=== PATIENT | male | born 1960 | race Caucasian/White ===

== ENCOUNTER 2018-02-08 11:56 | Inpatient (IN) | payer OTHER ==
[~2018-02-08] VITALS: Ht 177.8 cm; Wt 77.1 kg
--- NOTE | ~2018-02-08 | EKG ---
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
--- NOTE | ~2018-02-08 | HC ---
[facility] [place] [address] CONSULTATION Name: ROSE VILLAREAL Room #: 215-P [facility] IN M.R.#: [id number] Admission: 02/08/18 Attend Phys: Bernard Alcala MD Discharge: 02/10/18 Date of : 58 Report #: [id number] THIS REPORT FOR: //name// CC: FAM unknown Octavio Chai Alcala REASON FOR CONSULTATION: AV node ablation. HISTORY OF PRESENT ILLNESS: The patient is a 58-year-old with history of mechanical aortic valve, status post pacemaker implantation with recovery of conduction as well as severe COPD and paroxysmal atrial fibrillation. He has had approximately 6 hospitalizations recently at [facility] for AFib with RVR. He has been tried on amiodarone, but his lungs could not tolerate this. He failed sotalol and Tikosyn therapy most recently. I spoke with Dr. Medeiros, his primary yard caller at [facility] and he requested to transfer the patient for AV node ablation. REVIEW OF SYSTEMS: GENERAL: No fevers or chills. HEENT: No blurred vision. CARDIOVASCULAR: Shortness of breath and fatigue with atrial fibrillation. PULMONARY: No productive cough. GASTROINTESTINAL: No nausea or vomiting. GENITOURINARY: No dysuria. MUSCULOSKELETAL: No myalgias or arthralgias. ENDOCRINE: No heat or cold intolerance. NEUROLOGIC: No focal weakness. PAST MEDICAL HISTORY: 1. Mechanical aortic valve. 2. Dual chamber MRI compatible Medtronic pacemaker. 3. Paroxysmal atrial fibrillation. 4. Diastolic heart failure with normal EF based on echo this year. 5. End-stage COPD, on oxygen. 6. Hypertension. SOCIAL HISTORY: Does not smoke. FAMILY HISTORY: Noncontributory. ALLERGIES: None. CURRENT MEDICATIONS: Include lisinopril, Lasix, digoxin, sotalol, atorvastatin, diltiazem and warfarin. PHYSICAL EXAMINATION: [facility] [address] [place] [address] CONSULTATION Name: ROSE VILLAREAL Room #: 215-P [facility]#: [id number] Admission: 02/08/18 Attend Phys: Bernard Alcala MD Discharge: 02/10/18 Date of : 58 Report #: [id number] VITAL SIGNS: Temperature is 36.4, pulse 64, respiratory rate 18, blood pressure 125/61, sats 99%. GENERAL: The patient is in no acute distress. HEENT: Oropharynx is clear. Mucous membranes are moist. NECK: Supple with no thyromegaly. HEART: Regular rate and rhythm with no murmurs, rubs, gallops. He does have mechanical aortic sounds. LUNGS: Demonstrate some mild bibasilar crackles. ABDOMEN: Soft, nontender, nondistended with no hepatosplenomegaly. EXTREMITIES: There is no clubbing, cyanosis, edema. NEUROLOGICAL: Cranial nerves 2-12 are intact. LABORATORY DATA: His 12-lead EKG shows atrial fibrillation with right bundle branch block and no ischemic changes. His telemetry shows that he is currently in sinus rhythm, but overnight he was in atrial fibrillation with rates in the 150s to 160s. His chest x-ray, I personally reviewed showed some chronic interstitial lung changes, likely from COPD. It shows a stable pacemaker with normal cardiac silhouette. LABORATORY DATA: White count 6, hemoglobin 9, platelets 211. INR is 1.8, potassium is 4.6, creatinine is 0.7, proBNP is 1400. TSH is 4.4. ASSESSMENT: 1. Atrial fibrillation with rapid ventricular response. 2. Atrial flutter with rapid ventricular response. 3. Mechanical aortic valve. 4. Dual chamber pacemaker. 5. Severe chronic obstructive pulmonary disease. 6. Acute on chronic diastolic heart failure. 7. Hypertension. PLAN: In summary, the patient is a 58-year-old with history of paroxysmal AFib with rapid ventricular response, who has failed antiarrhythmic drugs and has had multiple rehospitalizations with AFib with RVR. He is here today for AV node ablation. I have discussed the details of the procedure with the patient including the risks, which include but not limited to bleeding, vascular damage as well as stroke or NE. He understands these risks and is willing to proceed. Post-ablation, we can resume his warfarin. <ELECTRONICALLY SIGNED> By: Octavio Paula MD 02/12/18 0831 0851 12 Octavio Paula MD /nt
--- NOTE | ~2018-02-08 | HC ---
[facility] [place] [address] CONSULTATION Name: ROSE VILLAREAL Room #: 215-P ADM IN M.R.#: [id number] Admission: 02/08/18 Attend Phys: Bernard Alcala MD Discharge: Date of : 58 Report #: [id number] THIS REPORT FOR: //name// CC: FAM unknown Octavio Warrendenaereina Bernard Alcala DATE OF SERVICE: 02/08/2018 TYPE OF REPORT: Cardiology consultation. INDICATION: Atrial fibrillation. HISTORY OF PRESENT ILLNESS: This is a 58-year-old gentleman transferred from [facility] for AV node ablation. He has a history significant for end-stage COPD, on home O2; chronic atrial fibrillation; chronic diastolic heart failure; mechanical aortic valve replacement and permanent pacemaker; presenting with respiratory failure. Apparently, he has had multiple admissions to [facility] with recurrent respiratory failure, partly attributed to atrial fibrillation with a rapid ventricular rate. The increased heart rate is felt to be triggered by his COPD exacerbation. There is no history of chest pains, nausea or diarrhea. PAST MEDICAL HISTORY: 1. Mechanical aortic valve replacement in 2013. 2. History of atrial fibrillation. 3. Chronic diastolic heart failure, echo reveals normal LV systolic function in 2018. 4. End-stage COPD, on home oxygen. 5. Permanent pacemaker for complete heart block. 6. History of hypertension. ALLERGIES: None. SOCIAL HISTORY: Denies tobacco use. MEDICATIONS: Lisinopril, Lasix, digoxin, sotalol, atorvastatin, diltiazem and warfarin. PHYSICAL EXAMINATION: VITAL SIGNS: Blood pressure 140/80 and heart rate is 80 beats per minute. GENERAL APPEARANCE: A thin male, in no acute distress. HEENT: Normocephalic and atraumatic. Oral mucosa moist. NECK: Supple. LUNGS: Diminished breath sounds diffusely. CARDIAC: Regular rate and rhythm. S1 and S2 positive. [facility] [address] [place] [address] CONSULTATION Name: ROSE VILLAREAL Room #: 215-P ADM IN [facility]#: [id number] Admission: 02/08/18 Attend Phys: Bernard Alcala MD Discharge: Date of : 58 Report #: [id number] ABDOMEN: Soft and nontender. EXTREMITIES: No edema. No cyanosis. LABORATORY DATA: Laboratory values are pending. ASSESSMENT AND PLAN: 1. Atrial fibrillation with intermittent rapid ventricular rate. Mostly driven by chronic obstructive pulmonary disease exacerbations. He has had multiple recurrence in the past 6 months. The plan is to proceed with atrioventricular node ablation. He already has an underlying pacemaker. 2. Chronic obstructive pulmonary disease/respiratory failure, appears to be stable at this time. 3. Mechanical aortic valve replacement, stable with no symptoms of congestion. Continue with warfarin therapy. 4. Hypertension, continue with medications. <ELECTRONICALLY SIGNED> By: Mak Muñiz MD 02/09/18 0807 1515 0005 Mak Muñiz MD /latoya
--- NOTE | ~2018-02-08 | EKG ---
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 : 1960 Requested By: Octavio Paula Order Number: [id number] MD: Dakota Velez Measurements Intervals [place] Rate: 69 P: 36 [place]: 200 QRS: -84 QRSD: 140 T: 96 QT: 442 QTc: 474 Interpretive Statements A-V dual-paced rhythm No further analysis attempted due to paced rhythm Compared to ECG 02/08/2018 15:56:47 Atrial fibrillation no longer present Right bundle-branch block no longer present Electronically Signed On 02-10-2018 16:32:45 BACK TENDER PAPER MACHINE by Dakota Velez [email or web address] <ELECTRONICALLY SIGNED> By: Dakota Velez MD, [facility] 02/10/18 1632 0656 0656 Dakota Velez MD, [facility] /EPI
--- NOTE | ~2018-02-08 | P ---
[facility] [place] [address] PROCEDURE REPORT Name: ROSE VILLAREAL Room #: 215-P [facility] IN M.R.#: [id number] Admission: 02/08/18 Attend Phys: Bernard Alcala MD Discharge: 02/10/18 Date of : 58 Report #: [id number] THIS REPORT FOR: //name// CC: FAM unknown Octavio Chai Alcala PREOPERATIVE DIAGNOSIS: Atrial fibrillation. POSTOPERATIVE DIAGNOSIS: Atrial fibrillation. HISTORY: The patient is a 58-year-old with a history of end-stage COPD on chronic oxygen, paroxysmal atrial fibrillation as well as mechanical aortic valve, status post prior pacemaker implantation. He has been rehospitalized multiple times at [facility] with AFib with RVR that they cannot control and has failed amiodarone, sotalol and Tikosyn therapy. He is here for AV node ablation. PROCEDURE: 1. AV node ablation, CPT code 04106. 2. Pacemaker programming, pre-ablation, CPT code 65533. 3. Pacemaker reprogramming, post-ablation, CPT code 93772. ANESTHESIA: The patient underwent MAC anesthesia and required BiPAP therapy for oxygenation with no procedural complications. DESCRIPTION OF PROCEDURE: The patient underwent informed consent. We discussed the details of the procedure including the risks, which include but not limited to bleeding, infection, vascular damage, cardiac perforation, stroke and [place]. He understood these risks and is willing to proceed. The patient was brought to the EP laboratory in a fasting and unsedated state. His Medtronic dual chamber pacemaker was reprogrammed to the VVI 40 mode prior to the procedure. Next, I obtained access to the right femoral vein and placed an SR0 sheath and an 8 mm Biosense [place] ablation catheter at the level of the AV node. Of note, I could not really find a His. I performed an anatomic ablation and performed a continuous drag lesion at 70 hall and 60 degrees until I was almost completely in the atrium at which time there was evidence of a complete heart block. After a few minutes, his conduction did return. I therefore went back to the original site where we successfully ablated the node and performed additional ablation at this site. We monitored the patient for a period of time and there was no recurrence of conduction. His pacemaker was reprogrammed to the DDD 60-120 mode. I did program on atrial ATP as well as it appears the patient goes in and out of atrial fibrillation. Catheters and sheaths were pulled and then hemostasis was obtained. There were no procedural complications. [facility] [address] [place] [address] PROCEDURE REPORT Name: ROSE VILLAREAL Room #: 215-P [facility] IN [facility]#: [id number] Admission: 02/08/18 Attend Phys: Bernard Alcala MD Discharge: 02/10/18 Date of : 58 Report #: [id number] CONCLUSIONS: 1. Successful atrioventricular node ablation. 2. Successful pacemaker reprogramming. <ELECTRONICALLY SIGNED> By: Octavio Paula MD 02/12/18 0831 1540 0135 Octavio Paula MD /latoya
[2018-02-08 15:00] VITALS: BP 148/73
[2018-02-08 16:48] LABS: ABSOLUTE NEUTROPHILS 5.3 thou/uL (1.4-8.2); BASOPHILS 0.5 % (0.0-2.0); EOSINOPHILS 2.7 % (0.0-3.0); HEMATOCRIT 29.9 % (42.0-52.0); HEMOGLOBIN 9.2 gm/dL (14.0-18.0); LYMPHOCYTES 9.2 % (24.0-44.0); MCH 24.8 pg (26.0-34.0); MCHC 30.9 g/dL (28.0-37.0); MCV 80.3 fL (80.0-100.0); MONOCYTES 7.5 % (1.0-8.0); PLATELET COUNT 211 thou/uL (150-400); POLYS 80.1 % (36.0-66.0); RBC 3.72 mil/uL (4.50-6.00); RDW 16.6 % (10.5-14.5); WBC 6.6 thou/uL (4.0-11.0)
[2018-02-08 16:56] LABS: INR 1.8; PROTIME 18.3 Seconds (9.3-11.4)
[2018-02-08 17:16] LABS: ALBUMIN 3.1 g/dL (3.4-5.0); ANION GAP < 0 mmol/L (7-16); BUN 8 mg/dL (7-18); CALCIUM 9.4 mg/dL (8.5-10.1); CHLORIDE 98 mmol/L (98-107); CO2 42 mmol/L (21-32); CREATININE 0.7 mg/dL (0.7-1.3); GLUCOSE 166 mg/dL (74-106); MAGNESIUM 1.7 mg/dL (1.8-2.4); POTASSIUM 4.6 mmol/L (3.5-5.1); SGOT 17 U/L (15-37); SGPT 26 U/L (30-65); SODIUM 135 mmol/L (136-145); TOTAL BILIRUBIN 0.6 mg/dL (<0.1-1.0); TOTAL PROTEIN 7.4 g/dL (6.4-8.2)
[2018-02-08 19:34] VITALS: BP 119/57
[2018-02-09 03:32] VITALS: BP 127/68
[2018-02-09 08:47] VITALS: BP 125/61
[2018-02-09 12:24] VITALS: BP 134/61
[2018-02-09 16:00] VITALS: BP 129/78
[2018-02-09 17:01] VITALS: BP 134/61
[2018-02-09 19:45] VITALS: BP 144/72; BP 146/63
[2018-02-10] VITALS (8 sets, daily range): BP systolic 125–153; BP diastolic 52–86
[2018-02-10 03:42] LABS: INR 1.1; PROTIME 11.9 Seconds (9.3-11.4)
[2018-02-10] MEDS ORDERED: COUMADIN 5 MG TA5 M1 PO (09:44)
[2018-02-10] MEDS ORDERED: ATORVASTATIN CA10 MG PO (09:44)
[2018-02-10] MEDS ORDERED: PANTOPRAZOLE SO40 M1 PO (09:44)
[2018-02-10] MEDS ORDERED: CHANTIX0.5 MG PO (09:44)
[2018-02-10] MEDS ORDERED: ALBUTEROL2.5 MG/0.5 INH (09:44)
[2018-02-10] MEDS ORDERED: MEDROLDOSEPACK PO (09:44)
[2018-02-10] MEDS ORDERED: SYNTHROID100 MC1 PO (09:44)
[2018-02-10] MEDS ORDERED: ENOXAPARIN80 MG/0.1 SUBQ (09:44)
[2018-02-10] MEDS ORDERED: IPRAT-ALBUT 0.5-3 ML INH (09:44)
== END 2018-02-10 17:00 | disposition home health service (06) | DRG 273 ==
LOC: 2N 11:56 → ENTRNSPT 02-10 16:52 → 2N 02-10 17:00
PROVIDERS: Internal Medicine; Internal Medicine Cardiovascular Disease
PROC: 02583ZZ Destruction of Conduction Mechanism, Percutaneous Approach (ICD-10-PCS; principal; 2018-02-09)
DX: I48.0 Paroxysmal atrial fibrillation (principal); J96.21 Acute and chronic respiratory failure with hypoxia; I50.33 Acute on chronic diastolic (congestive) heart failure; J44.1 Chronic obstructive pulmonary disease with (acute) exacerbation; E03.9 Hypothyroidism, unspecified; I11.0 Hypertensive heart disease with heart failure; Z95.2 Presence of prosthetic heart valve; Z95.0 Presence of cardiac pacemaker; Z91.19 Patient's noncompliance with other medical treatment and regimen; Z79.01 Long term (current) use of anticoagulants; Z71.6 Tobacco abuse counseling; Z79.899 Other long term (current) drug therapy
CPT/HCPCS: 10081; 62110; 62900; 70005